=== PATIENT | male | born 1995 | race Caucasian/White ===

== ENCOUNTER 2023-11-19 13:15 | Emergency (ER) | payer OTHER ==
[2023-11-19 14:04] VITALS: O2SAT 100
--- NOTE | 2023-11-19 14:08 | ED Physician Documentation ---
History of Present Illness - Stated complaint Stated Complaint: WITHDRAWL - Chief complaint Chief Complaint: General - History obtained from History obtained from: Patient - Additonal information Additional information: This is a 28-year-old male who denies any significant past medical history [facility]. Patient is accompanied by his fllight surgeon. The patient apparently missed some required duties on 2 occasions earlier this week therefore staff went to his house to check on him and the patient was visibly intoxicated with multiple bottles of alcohol noted in the house. The following day the patient came to another event and there was concern that he was likely intoxicated there. The patient was evaluated by [facility] today with plans for either inpatient or out patient alcohol rehab but they noted that he was hypertensive, tachycardic and somewhat tremulous this wanted him to be via evaluated in the ED before t hese arrangements were made. Patient states he has been drinking regularly for several years, he has never attempted to quit and never had any alcohol withdrawal symptoms or seizures. He claims to only drink up approximately 3 drinks some nights of the week, a mix of beer and hard alcohol. He denies any other drug use. He Denies any hallucinations, no vomiting, no diarrhea hematochezia, he denies any chest pain or difficulty breathing, no urinary symptoms. He has no other concerns today. He denies any suicidal thoughts or thoughts thoughts of self-harm. He denies any history of alcohol withdrawal seizures or DTs in the past. Review of Systems Constitutional: reports: Reviewed and negative Eyes: reports: Reviewed and negative Ears: reports: Reviewed and negative Nose: reports: Reviewed and negative Throat: reports: Reviewed and negative Cardiac: reports: Reviewed and negative Respiratory: reports: Reviewed and negative GI: reports: Reviewed and negative : reports: Reviewed and negative Skin: reports: Reviewed and negative Musculoskeletal: reports: Reviewed and negative Neurologic: reports: Reviewed and negative Psychiatric: reports: Reviewed and negative Endocrine: reports: Reviewed and negative PD PAST MEDICAL HISTORY - Past Medical History Past Medical History: Yes Psych: Other (Alcoholism) - Past Surgical History Past Surgical History: No - Present Medications Home Medications: Ambulatory Orders Medication Instructions Recorded Confirmed chlordiazePOXIDE [Librium] 25 mg PO Q6H PRN #12 cap 11/19/23 - Allergies Allergies/Adverse Reactions: Allergies Allergy/AdvReac Type Severity Reaction Status Date / Time No Known Drug Allergies Allergy Verified 11/19/23 13:54 - Social History Does the pt smoke?: No Smoking Status: Never smoker Does the pt drink ETOH?: Yes ETOH Use: Beer, Liquor Does the pt have substance abuse?: No - Immunizations Immunizations are current?: Yes - POLST Patient has POLST: No PD ED PE NORMAL - Vitals Vital signs reviewed: Yes - General General: Alert and oriented X 3, No acute distress, Well developed/nourished - HEENT HEENT: Atraumatic, PERRL, EOMI, Moist mucous membranes, Pharynx benign - Neck Neck: Supple, no meningeal sign, No adenopathy - Cardiac Cardiac: No murmur, No gallop, Strong equal pulses, Other (Tachycardic) - Respiratory Respiratory: No respiratory distress, Clear bilaterally - Abdomen Abdomen: Normal bowel sounds, Soft, Non tender, Non distended - Derm Derm: Normal color, Warm and dry, No rash - Extremities Extremities: No deformity, No tenderness to palpate, Normal ROM s pain, No edema, No calf tenderness / cord - Neuro Neuro: Alert and oriented X 3, No motor deficit, No sensory deficit, Normal speech Eye Opening: Spontaneous Motor: Obeys Commands Verbal: Oriented GCS Score: 15 - Psych Psych: Normal mood, Normal affect - Free text exam Free text exam: Mild tremor bilateral upper extremities and lower extremities. Results - Vitals Vitals: Vital Signs - 24 hr 11/19/23 11/19/23 11/19/23 13:42 14:00 15:00 Temperature 36.5 C Heart Rate 130 H 124 H 102 H Respiratory 22 17 19 Rate Blood Pressure 158/112 H 148/116 H 150/119 H O2 Saturation 100 100 100 11/19/23 11/19/23 15:54 16:27 Temperature Heart Rate 94 106 H Respiratory 19 23 Rate Blood Pressure 144/107 H 139/104 H O2 Saturation 100 100 Oxygen O2 Source Room air - Labs Labs: Laboratory Tests 11/19/23 11/19/23 11/19/23 14:15 14:15 14:15 WBC 5.4 RBC 4.63 L Hgb 15.9 Hct 45.7 MCV 98.7 H MCH 34.3 H MCHC 34.8 RDW 11.7 L Plt Count 144 MPV 9.9 Neut # (Auto) 4.0 Lymph # (Auto) 0.5 L [place] # (Auto) 0.9 Eos # (Auto) 0.0 Baso # (Auto) 0.0 Absolute Nucleated RBC 0.00 Nucleated RBC % 0.0 PT 12.3 INR 1.1 Sodium 133 L Potassium 3.7 Chloride 96 L Carbon Dioxide 28 Anion Gap 9.0 BUN 5 L Creatinine 0.9 Estimated GFR (MDRD) 99 Glucose 116 H Calcium 10.0 Magnesium Total Bilirubin 1.7 H AST 111 H ALT 147 H Alkaline Phosphatase 68 Total Protein 7.4 Albumin 4.7 Globulin 2.7 Albumin/Globulin Ratio 1.7 Lipase 93 H Urine Opiates Screen Ur Buprenorphine Scrn Ur Oxycodone Screen Urine Methadone Screen Ur Barbiturates Screen Ur Tricyclics Screen Ur Phencyclidine Scrn Ur Amphetamine Screen U Methamphetamines Scrn U Benzodiazepines Scrn Urine Cocaine Screen U Cannabinoids Screen Ur Drug Screen Comment Ethyl Alcohol < 10.0 11/19/23 11/19/23 14:15 15:05 WBC RBC Hgb Hct MCV MCH MCHC RDW Plt Count MPV Neut # (Auto) Lymph # (Auto) [place] # (Auto) Eos # (Auto) Baso # (Auto) Absolute Nucleated RBC Nucleated RBC % PT INR Sodium Potassium Chloride Carbon Dioxide Anion Gap BUN Creatinine Estimated GFR (MDRD) Glucose Calcium Magnesium 1.6 L Total Bilirubin AST ALT Alkaline Phosphatase Total Protein Albumin Globulin Albumin/Globulin Ratio Lipase Urine Opiates Screen NEGATIVE Ur Buprenorphine Scrn NEGATIVE Ur Oxycodone Screen NEGATIVE Urine Methadone Screen NEGATIVE Ur Barbiturates Screen NEGATIVE Ur Tricyclics Screen NEGATIVE Ur Phencyclidine Scrn NEGATIVE Ur Amphetamine Screen NEGATIVE U Methamphetamines Scrn NEGATIVE U Benzodiazepines Scrn NEGATIVE Urine Cocaine Screen NEGATIVE U Cannabinoids Screen NEGATIVE Ur Drug Screen Comment CUTOFF CONC BELOW: Ethyl Alcohol PD Medical Decision Making - ED course Complexity details: reviewed results, re-evaluated patient, considered differential, d/w patient, other (Discussed with flight surgeon) ED course: 28-year-old male [place] [employer] who 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 There is concern by his [place] health care team that the patient was having more severe alcohol withdrawal so sent into the ER. Here, the patient is very pleasantly conversing, he has a mild tremor, mild tachycardia and hypertension but no hallucinations or delirium, no hematemesis or blood per rectum, no nausea vomiting headache. His CIWA score initially is 7 per my evaluation. We obtained lab work for screening evaluation, CBC is stable, CMP reveals mild elevation in LFTs and a bilirubin of 1.7, his magnesium is 1.6, labs otherwise stable. Alcohol level is negative, drug screen negative. Patient was given a total of a liter and half of fluid, 2 g of magnesium, folic acid, thiamine, and 1 mg of IV Ativan. He had improveme nt in his symptoms, and no longer feeling tremulous, remains pleasantly conversant. Ciwa score now 4-5. I discussed with patient and his flight surgeon that he is stable for outpatient management at this point for his alcohol withdrawal and encourage rehab placement whether that be inpatient or outpatient. I will discharge the patient home with Librium as needed for the next several days. He was counseled on the need to completely abstain from alcohol and we discussed return precautions if withdrawal symptoms worsen including delirium, seizure activity, or new concerns. Patient encouraged to start taking multivitamin, thiamine and folic acid and to have his liver enzymes and blood pressure rechecked within the next couple of weeks and at some point In the next couple of months have a nonemergent outpatient right upper quadrant ultrasound to evaluate his liver. Departure - Departure Disposition: 01 Home, Self Care Clinical Impression: Hypomagnesemia, Elevated liver enzymes Alcohol withdrawal Qualifiers: Complication of substance-induced condition: uncomplicated Qualified Code(s): F10.930 - Alcohol use, unspecified with withdrawal, uncomplicated Condition: Good Instructions: ED Withdrawal Alcohol Prescriptions: chlordiazePOXIDE [Librium] 25 mg PO Q6H PRN #12 cap PRN Reason: withdrawal Comments: You are stable to continue alcohol withdrawal management outside of the hospital. I am starting you on Librium to use as needed over the course the next several days for withdrawal symptoms. You did have a mildly low magnesium which we replaced IV here. Your liver enzymes are also mildly elevated likely due to your alcohol use. This should be monitored by your primary doctor and it would be good for you to have a nonemergent outpatient ultrasound of your liver to evaluate for cirrhosis. Your blood pressure here is somewhat elevated likely due to withdrawal symptoms but monitor this and after withdrawal symptoms have decreased, if you are still having elevated blood pressure this should be addressed in the clinic. If you have any seizure-like activity or if hallucinations or feel like your withdrawal symptoms are worsening, please return to the ER. Forms: PCP List Discharge Date/Time: 11/19/23 16:28
[2023-11-19 14:19] LABS: BASOPHILS % (AUTO) 0.6 %; EOSINOPHILS % (AUTO) 0.7 %; HCT - HEMATOCRIT 45.7 % (42.0-52.0); HGB - HEMOGLOBIN 15.9 g/dL (14.0-18.0); LYMPHOCYTES # (AUTO) 0.5 10^3/uL (1.5-3.5); LYMPHOCYTES % (AUTO) 8.7 %; MEAN CORPUSCULAR HEMOGLOBIN 34.3 pg (27.0-31.0); MEAN CORPUSCULAR HGB CONC 34.8 g/dL (32.0-36.0); MEAN CORPUSCULAR VOLUME 98.7 fL (80.0-94.0); MEAN PLATELET VOLUME 9.9 fL (7.4-11.4); MONOCYTES # (AUTO) 0.9 10^3/uL (0.0-1.0); MONOCYTES % (AUTO) 16.1 %; NEUTROPHILS % (AUTO) 73.7 %; PLT - PLATELET COUNT 144 10^3/uL (130-450); RED BLOOD COUNT 4.63 10^6/uL (4.70-6.10); RED CELL DISTRIBUTION WIDTH 11.7 % (12.0-15.0); WHITE BLOOD COUNT 5.4 x10^3/uL (4.8-10.8)
[2023-11-19] MEDS: SODIUM CHLORIDE 0.9% 1,000 ML IV STA (14:19)
[2023-11-19 14:33] LABS: ALBUMIN 4.7 g/dL (3.2-5.5); ALBUMIN/GLOBULIN RATIO 1.7 (1.0-2.2); ALKALINE PHOSPHATASE 68 IU/L (42-121); ALT ALANINE AMINOTRANSFERASE 147 IU/L (10-60); AST ASPARTATE AMINOTRANSFERASE 111 IU/L (10-42); BILIRUBIN,TOTAL 1.7 mg/dL (0.2-1.0); BUN - BLOOD UREA NITROGEN 5 mg/dL (6-20); CARBON DIOXIDE - CO2 28 mmol/L (21-32); CHLORIDE 96 mmol/L (101-111); CREATININE 0.9 mg/dL (0.6-1.3); ETOH - ETHANOL < 10.0 mg/dL; GFR - MDRD 99 (>89); GLUCOSE 116 mg/dL (74-104); LIPASE 93 U/L (11-82); POTASSIUM 3.7 mmol/L (3.5-4.5); SODIUM 133 mmol/L (135-145); TOTAL PROTEIN 7.4 g/dL (6.4-8.9)
[2023-11-19 14:35] LABS: INR 1.1 (0.8-1.2); PT - PROTHROMBIN TIME 12.3 secs (9.9-12.6)
[2023-11-19] MEDS: THIAMINE 100 MG TABLET PO STA (15:08)
[2023-11-19] MEDS: MAGNESIUM SULFATE 2 GRAM 2 GM/50 ML BAG IV ONE (15:08)
[2023-11-19] MEDS: LORazepam 2 MG/ML VIAL IVP STA (15:09)
[2023-11-19] MEDS: SODIUM CHLORIDE 0.9% 500 ML IV STA (15:09)
[2023-11-19 15:24] LABS: AMPHETAMINE SCREEN,URINE NEGATIVE (NEGATIVE); BARBITURATE SCREEN,UR NEGATIVE (NEGATIVE); BENZODIAZEPINES SCREEN, URINE NEGATIVE (NEGATIVE); BUPRENORPHINE SCREEN, URINE NEGATIVE (NEGATIVE); COCAINE SCREEN URINE NEGATIVE (NEGATIVE); METHADONE SCREEN, URINE NEGATIVE (NEGATIVE); METHAMPHETAMINES SCREEN, URINE NEGATIVE (NEGATIVE); OPIATE SCREEN, URINE NEGATIVE (NEGATIVE); OXYCODONE SCREEN, URINE NEGATIVE (NEGATIVE); THC CANNABINOID SCREEN, URINE NEGATIVE (NEGATIVE); TRICYCLIC ANTIDEPRESSANT,URINE NEGATIVE (NEGATIVE)
[2023-11-19] MEDS: FOLIC ACID 1 MG TABLET PO STA (15:59)
[2023-11-19] MEDS: chlordiazePOXIDE 25 MG CAPSULE PO STA (16:20)
[2023-11-19 16:29] VITALS: BP 139/104
[2023-11-20] MEDS ORDERED: FOLIC ACID 1 MG TABLET PO SCH (09:00)
== END 2023-11-19 16:28 | disposition home or self-care (01) ==
LOC: ED 13:15
DX: F10.930 Alcohol use, unspecified with withdrawal, uncomplicated (principal); Y90.0 Blood alcohol level of less than 20 mg/100 ml; E83.42 Hypomagnesemia; R74.8 Abnormal levels of other serum enzymes
CPT/HCPCS: 36415; 80053; 80306; 82077; 83690; 83735; 85025; 85610; 96365; 96375; 99283; 99284; A9270; J2060